=== PATIENT | male | born 1960 | race Caucasian/White ===

== ENCOUNTER 2017-07-21 09:01 | Day surgery (SDC) | payer OTHER ==
[~2017-07-21] VITALS: Ht 177.8 cm; Wt 76.3 kg
[2017-07-21 10:02] VITALS: Ht 177.8 cm; Wt 76.3 kg
[2017-07-21] MEDS ORDERED: TRAZADONE (10:06)
[2017-07-21] MEDS ORDERED: ABILIFY PO (10:06)
[2017-07-21] MEDS ORDERED: CITALOPRAM PO (10:06)
[2017-07-21] MEDS ORDERED: WELLBUTRIN PO (10:06)
[2017-07-21] MEDS ORDERED: LIDOCAINE 2% (SDV) 5 ML INJ ONE (11:09)
[2017-07-21] MEDS ORDERED: PROPOFOL 20 ML ONE (11:09)
[2017-07-21] MEDS ORDERED: MIDAZOLAM 1 MG/ML 2 ML INJ ONE (11:09)
[2017-07-21 11:16] VITALS: BP 124/79; PULSE 71; RESP 16
--- NOTE | 2017-07-21 11:37 | OPPN ---
Date/Time of Note Date/Time of Note DATE: 07/21/17 TIME: 11:36 Operative Report Preoperative Diagnosis Screening Postoperative Diagnosis Internal hemorrhoids No colon neoplasm is identified Operation/Procedure Performed Colonoscopy Provider: JONO DUBOIS MD Anesthesia Type: MAC Estimated blood loss: none Transfusion Required: no Specimen: none Grafts/Implants: none Complications: no JONO DUBOIS MD Jul 21, 2017 11:37
[2017-07-21 11:58] VITALS: BP 107/59; RESP 18
--- NOTE | 2017-07-21 15:35 | GILP ---
DATE OF PROCEDURE: 07/21/2017 PROCEDURE PERFORMED: Colonoscopy. SURGEON: Cesar Huff MD PREOPERATIVE DIAGNOSIS: Screening colonoscopy. POSTOPERATIVE DIAGNOSES: 1. Colonoscopy all the way to the cecum. 2. Internal hemorrhoids. 3. No colon neoplasm was identified. INDICATION: Mr. Phil Dang is a 57-year-old male patient who was scheduled for screening colonoscopy. The procedure and possible complications were well explained to the patient. He understood and consented to the procedure. DESCRIPTION OF PROCEDURE: Under the influence of anesthesia, the colonoscope was carefully introduced in the rectum. Under direct vision, it was advanced all the way to the cecum. Findings: Patient had internal hemorrhoids. No colon neoplasm was identified. He tolerated the procedure very well. There were no complications from the procedure. At the end of procedure, he was awake, with stable vital signs and he was discharged home in the care of his family. IMPRESSION: Screening colonoscopy. PLAN: Next screening colonoscopy in 10 years. Dictated By: MD CLAUDETTE Farmer/valentin/ye /Document#: [id number] CC: Cesar Huff MD;*EndCC*
== END 2017-07-21 12:01 | disposition home or self-care (01) ==
LOC: GIL 09:01
PROVIDERS: ATTEND Internal Medicine Gastroenterology
DX: Z12.11 Encounter for screening for malignant neoplasm of colon (principal); K64.8 Other hemorrhoids; F41.8 Other specified anxiety disorders
CPT/HCPCS: 45378; J2250